=== PATIENT | female | born 1950 | race Caucasian/White ===

== ENCOUNTER 2017-09-15 23:05 | Inpatient (IN) | payer MEDICARE ==
[~2017-09-15] VITALS: Ht 154.9 cm; Wt 109.4 kg
[2017-09-16] MEDS ORDERED: IPRATROPIUM BROM 0.5 MG/2.5ML INH SOL NEB ONE ×3 (00:45→04:15)
[2017-09-16] MEDS ORDERED: ALBUTEROL SULF 2.5 MG/0.5ML(0.5%) NEB SOLN NEB ONE ×3 (00:45→04:15)
[2017-09-16] MEDS ORDERED: methylPREDNISolone SOD SUCC 125 MG/2 ML VL IV ONE (01:30)
[2017-09-16] MEDS ORDERED: diphenhdrAMINE HCL 50 MG/1 ML VL ONE (01:31)
[2017-09-16] MEDS ORDERED: EPINEPHrine HCL 1 MG/1 ML AMP ONE (01:31)
[2017-09-16] MEDS ORDERED: EPINEPHrine HCL 1 MG/1 ML AMP SC ONE ×2 (01:45→04:15)
[2017-09-16] MEDS ORDERED: SODIUM CHLORIDE 0.9% 1,000 ML IV ONE (01:45)
[2017-09-16] MEDS ORDERED: diphenhdrAMINE HCL 50 MG/1 ML VL IV ONE (01:45)
[2017-09-16] MEDS ORDERED: FAMOTIDINE (10MG/ML) 2ML VL IV ONE (04:15)
[2017-09-16 05:40] LABS: Basophils # (auto) 0.1 uL; Basophils % (auto) 0.5 % (0.0-2.0); Eosinophils # (auto) 0.1 uL; Eosinophils % (auto) 0.5 % (0.0-7.0); Hematocrit 40.5 % (36.0-46.0); Hemoglobin 13.5 g/dL (12.2-16.2); Lymphocytes % (auto) 15.8 % (10.0-50.0); Mean Corpuscular Hemoglobin 29.2 pg (28.0-32.0); Mean Corpuscular Hgb Conc. 33.3 g/dL (32.0-36.0); Mean Corpuscular Volume 87.7 fL (80.0-100.0); Monocytes # (auto) 0.6 uL; Monocytes % (auto) 4.6 % (0.0-12.0); Neutrophils # (auto) 9.9 uL; Neutrophils % (auto) 78.6 % (37.0-80.0); Nucleated Red Blood Cells % 0.1 %; Platelet Count (auto) 348 10^3/uL (140-450); Red Blood Cells 4.62 10^6/uL (4.0-5.20); Red Cell Distribution Width 14.7 % (11.8-14.3); White Blood Cell 12.6 10^3/uL (4.4-10.8)
[2017-09-16 05:55] LABS: Albumin 3.6 g/dL (3.4-5.0); Calcium 8.8 mg/dL (8.5-10.1); Potassium 3.5 mmol/L (3.5-5.1)
[2017-09-16 05:57] LABS: BUN/Creatinine Ratio 14.8; Magnesium 2.2 mg/dL (1.6-2.6)
[2017-09-16 06:03] LABS: Bilirubin, Total 0.2 mg/dL (0.2-1.0); Total Protein 8.3 g/dL (6.4-8.2)
[2017-09-16] MEDS ORDERED: ALBUTEROL SULF 2.5 MG/0.5ML(0.5%) NEB SOLN NEB PRN (09:45)
[2017-09-16] MEDS ORDERED: OSELTAMIVIR 75 MG CAP PO ONE (09:45)
[2017-09-16] MEDS ORDERED: MORPHINE SULFATE 4 MG/ML SYR/VIAL IV PRN (09:45)
[2017-09-16] MEDS ORDERED: DEXTROSE (50%) 50ML SYRG IV PRN (09:45)
[2017-09-16] MEDS ORDERED: PROMETHAZINE HCL 25 MG/ML 1ML IV PRN (09:45)
[2017-09-16] MEDS ORDERED: SODIUM CHLORIDE 0.9% 500 ML IV ONE (09:45)
[2017-09-16] MEDS ORDERED: MORPHINE SULF INJ 2 MG/ML SYRINGE 1ML IV PRN (09:45)
[2017-09-16] MEDS ORDERED: LACTULOSE 20Gm/30ML SOLN PO PRN (09:45)
[2017-09-16] MEDS ORDERED: NITROGLYCERIN 0.4 MG SL TAB SL PRN (09:45)
[2017-09-16] MEDS: ENOXAPARIN SOD 40 MG/0.4 ML SYRINGE SC SCH (10:17)
[2017-09-16] MEDS: ACETAMINOPHEN 500 MG TAB PO PRN (10:20)
[2017-09-16] MEDS: FAMOTIDINE (10MG/ML) 2ML VL IV SCH ×2 (10:42→22:09)
[2017-09-16] MEDS: DOXYCYCLINE HYC 100MG/250ML 250 ML IV SCH ×2 (10:45→22:08)
[2017-09-16] MEDS ORDERED: METO1TAB9 PO (11:10)
[2017-09-16] MEDS: SODIUM CHLORIDE 0.9% 1,000 ML IV SCH (11:10)
[2017-09-16] MEDS ORDERED: DILT-40 (11:10)
[2017-09-16] MEDS ORDERED: TRAZ150T79 (11:13)
[2017-09-16] MEDS ORDERED: OME40GT (11:13)
[2017-09-16] MEDS ORDERED: DIPH2.5T16 (11:13)
[2017-09-16] MEDS ORDERED: LEVO112T4 (11:13)
[2017-09-16] MEDS ORDERED: DULO1CAP3 (11:13)
[2017-09-16] MEDS ORDERED: METO-169 PO (11:15)
[2017-09-16] MEDS ORDERED: ALBUTEROL SULF 2.5 MG/0.5ML(0.5%) NEB SOLN NEB SCH (12:00)
[2017-09-16] MEDS ORDERED: methylPREDNISolone SOD SUCC 40 MG/ML VL IV SCH (12:00)
[2017-09-16] MEDS: ACCU-CHEK COMFORT CURVE STRIP VI SCH ×3 (12:24→22:13)
[2017-09-16] MEDS: InsuLIN REG 1unit/0.01ml Soln (100units/ml) SC SCH ×3 (12:28→22:13)
[2017-09-16] MEDS: IPRATROPIUM BROM 0.5 MG/2.5ML INH SOL NEB SCH ×2 (12:30→19:50)
[2017-09-16 17:00] VITALS: BP 149/102
[2017-09-16 17:04] VITALS: BP 149/104
[2017-09-16] MEDS: ASPirin 81 mg TAB PO SCH (18:08)
[2017-09-16 20:00] VITALS: BP 159/102
[2017-09-16 21:33] VITALS: BP 159/79
[2017-09-16 21:57] VITALS: BP 159/79
[2017-09-16] MEDS: OSELTAMIVIR 75 MG CAP PO SCH (22:00)
[2017-09-16] MEDS: ATORVASTATIN 20 MG TAB PO SCH (22:09)
[2017-09-16] MEDS: LORazepam 0.5 MG TAB PO PRN (22:09)
[2017-09-17] MEDS: SODIUM CHLORIDE 0.9% 1,000 ML IV SCH ×2 (00:05→13:25)
[2017-09-17] MEDS: TEMAZEPAM 15 MG CAP PO PRN (00:39)
[2017-09-17] MEDS: IPRATROPIUM BROM 0.5 MG/2.5ML INH SOL NEB SCH ×4 (01:18→20:01)
[2017-09-17 05:22] VITALS: BP 147/97
[2017-09-17] MEDS: ACCU-CHEK COMFORT CURVE STRIP VI SCH ×4 (06:34→22:00)
[2017-09-17] MEDS: InsuLIN REG 1unit/0.01ml Soln (100units/ml) SC SCH ×4 (06:35→22:00)
[2017-09-17 07:05] LABS: Basophils # (auto) 0 uL; Eosinophils # (auto) 0 uL; Hemoglobin 11.8 g/dL (12.2-16.2); Lymphocytes # (auto) 1.7 uL; Lymphocytes % (auto) 10.7 % (10.0-50.0); Mean Corpuscular Hemoglobin 28.8 pg (28.0-32.0); Mean Corpuscular Hgb Conc. 32.8 g/dL (32.0-36.0); Mean Corpuscular Volume 87.9 fL (80.0-100.0); Monocytes # (auto) 1.2 uL; Monocytes % (auto) 7.3 % (0.0-12.0); Neutrophils # (auto) 13.2 uL; Platelet Count (auto) 279 10^3/uL (140-450); Red Blood Cells 4.09 10^6/uL (4.0-5.20); Red Cell Distribution Width 14.1 % (11.8-14.3); White Blood Cell 16.1 10^3/uL (4.4-10.8)
[2017-09-17 07:34] LABS: BUN/Creatinine Ratio 25.6; Bilirubin, Total 0.2 mg/dL (0.2-1.0); Calcium 8.6 mg/dL (8.5-10.1); Potassium 3.8 mmol/L (3.5-5.1)
[2017-09-17 09:00] VITALS: BP 152/95
[2017-09-17] MEDS: OSELTAMIVIR 75 MG CAP PO SCH ×2 (10:00→22:00)
[2017-09-17] MEDS: DOXYCYCLINE HYC 100MG/250ML 250 ML IV SCH ×2 (10:12→23:43)
[2017-09-17] MEDS: FAMOTIDINE (10MG/ML) 2ML VL IV SCH ×2 (10:13→23:43)
[2017-09-17] MEDS: ENOXAPARIN SOD 40 MG/0.4 ML SYRINGE SC SCH (10:13)
[2017-09-17] MEDS: ASPirin 81 mg TAB PO SCH (10:13)
[2017-09-17 13:00] VITALS: BP 144/95
[2017-09-17 17:00] VITALS: BP 148/91
[2017-09-17] MEDS: HYDROcodone-ACET 5/325MG TAB PO PRN (17:01)
[2017-09-17 20:00] VITALS: BP 152/55
[2017-09-17] MEDS: LORazepam 0.5 MG TAB PO PRN (20:11)
[2017-09-17] MEDS ORDERED: methylPREDNISolone SOD SUCC 125 MG/2 ML VL IV ONE (21:00)
[2017-09-17] MEDS ORDERED: LORazepam 2MG/ML-1ML VIAL IV PRN (21:00)
[2017-09-17] MEDS ORDERED: ALBUTEROL SULF 2.5 MG/0.5ML(0.5%) NEB SOLN NEB ONE (21:00)
[2017-09-17] MEDS ORDERED: diphenhdrAMINE HCL 50 MG/1 ML VL ONE (21:07)
[2017-09-17] MEDS ORDERED: EPINEPHrine HCL 0.5 ML NEB NEB ONE (21:15)
[2017-09-17] MEDS ORDERED: diphenhdrAMINE HCL 50 MG/1 ML VL IV ONE (21:30)
[2017-09-17 22:00] VITALS: BP_SYST 152; BP_DIAS 55; BP_DIAS 95
[2017-09-17] MEDS: ATORVASTATIN 20 MG TAB PO SCH (23:43)
[2017-09-18] MEDS: ALBUTEROL SULF 2.5 MG/0.5ML(0.5%) NEB SOLN NEB SCH ×3 (00:35→11:52)
[2017-09-18] MEDS: IPRATROPIUM BROM 0.5 MG/2.5ML INH SOL NEB SCH ×4 (00:35→20:19)
[2017-09-18] MEDS: SODIUM CHLORIDE 0.9% 1,000 ML IV SCH ×2 (02:55→16:05)
[2017-09-18 05:00] VITALS: BP 155/92
[2017-09-18] MEDS: ACCU-CHEK COMFORT CURVE STRIP VI SCH ×4 (06:31→22:00)
[2017-09-18] MEDS: InsuLIN REG 1unit/0.01ml Soln (100units/ml) SC SCH ×4 (07:01→22:00)
[2017-09-18 09:00] VITALS: BP 150/99
[2017-09-18] MEDS: OSELTAMIVIR 75 MG CAP PO SCH ×2 (10:00→22:00)
[2017-09-18] MEDS: FAMOTIDINE (10MG/ML) 2ML VL IV SCH (10:08)
[2017-09-18] MEDS: DOXYCYCLINE HYC 100MG/250ML 250 ML IV SCH (10:08)
[2017-09-18] MEDS: ASPirin 81 mg TAB PO SCH (10:09)
[2017-09-18] MEDS: ENOXAPARIN SOD 40 MG/0.4 ML SYRINGE SC SCH (10:09)
[2017-09-18 13:00] VITALS: BP 167/55
[2017-09-18] MEDS: LORazepam 0.5 MG TAB PO PRN (13:09)
[2017-09-18] MEDS ORDERED: METOPROLOL TARTRATE 1MG/1ML-5ML VIAL IV PRN (14:45)
[2017-09-18] MEDS: methylPREDNISolone SOD SUCC 40 MG/ML VL IV SCH ×2 (15:27→22:41)
[2017-09-18] MEDS: DILTIAZEM HCL 180MG ER CAP PO SCH (15:30)
[2017-09-18 17:00] VITALS: BP 157/93
[2017-09-18] MEDS ORDERED: XOPENEX IN SCH (18:00)
[2017-09-18 22:00] VITALS: BP 146/85
[2017-09-18] MEDS: ATORVASTATIN 20 MG TAB PO SCH (22:42)
[2017-09-18] MEDS: FAMOTIDINE 20 MG TAB PO SCH (22:42)
[2017-09-18] MEDS: DOXYCYCLINE 100 MG TAB/CAP PO SCH (22:42)
[2017-09-19] MEDS: IPRATROPIUM BROM 0.5 MG/2.5ML INH SOL NEB SCH ×4 (00:52→20:33)
[2017-09-19 05:00] VITALS: BP 156/104
[2017-09-19] MEDS: SODIUM CHLORIDE 0.9% 1,000 ML IV SCH ×3 (05:25→22:42)
[2017-09-19] MEDS: ACCU-CHEK COMFORT CURVE STRIP VI SCH ×4 (06:41→22:41)
[2017-09-19] MEDS: InsuLIN REG 1unit/0.01ml Soln (100units/ml) SC SCH ×4 (06:51→22:41)
[2017-09-19] MEDS: LEVALBUTEROL HCL 1.25 MG/3 ML NEB IN SCH ×4 (07:24→22:00)
[2017-09-19 09:49] VITALS: BP 165/93
[2017-09-19] MEDS: OSELTAMIVIR 75 MG CAP PO SCH ×2 (10:00→22:41)
[2017-09-19] MEDS: FAMOTIDINE 20 MG TAB PO SCH ×2 (10:27→22:40)
[2017-09-19] MEDS: methylPREDNISolone SOD SUCC 40 MG/ML VL IV SCH (10:27)
[2017-09-19] MEDS: ASPirin 81 mg TAB PO SCH (10:27)
[2017-09-19] MEDS: DILTIAZEM HCL 180MG ER CAP PO SCH (10:28)
[2017-09-19] MEDS: ENOXAPARIN SOD 40 MG/0.4 ML SYRINGE SC SCH (10:28)
[2017-09-19] MEDS: DOXYCYCLINE 100 MG TAB/CAP PO SCH ×2 (10:28→22:41)
[2017-09-19] MEDS ORDERED: DULoxetine HCL 30 MG CAP PO ONE (10:45)
[2017-09-19 12:02] VITALS: BP 158/95
[2017-09-19] MEDS: clonazePAM 0.5 MG TAB PO SCH (12:36)
[2017-09-19] MEDS: LABETALOL HCL 200 MG TAB PO SCH ×2 (13:57→22:40)
[2017-09-19 14:58] VITALS: BP 138/80
[2017-09-19 16:39] VITALS: BP 135/79
[2017-09-19] MEDS: ATORVASTATIN 20 MG TAB PO SCH (22:39)
[2017-09-19 22:49] VITALS: BP 136/72
[2017-09-19] MEDS: TEMAZEPAM 15 MG CAP PO PRN (23:55)
[2017-09-20] MEDS: IPRATROPIUM BROM 0.5 MG/2.5ML INH SOL NEB SCH ×4 (01:21→19:16)
[2017-09-20 01:53] VITALS: BP 136/72
[2017-09-20 05:46] VITALS: BP 133/76
[2017-09-20] MEDS: LEVALBUTEROL HCL 1.25 MG/3 ML NEB IN SCH ×3 (06:01→18:00)
[2017-09-20] MEDS: ACCU-CHEK COMFORT CURVE STRIP VI SCH ×4 (06:50→21:49)
[2017-09-20] MEDS: LABETALOL HCL 200 MG TAB PO SCH ×3 (06:53→21:50)
[2017-09-20] MEDS: InsuLIN REG 1unit/0.01ml Soln (100units/ml) SC SCH ×4 (06:54→22:01)
[2017-09-20 08:00] VITALS: BP 133/63
[2017-09-20 09:01] VITALS: BP 133/63
[2017-09-20] MEDS: methylPREDNISolone SOD SUCC 40 MG/ML VL IV SCH (10:39)
[2017-09-20] MEDS: ASPirin 81 mg TAB PO SCH (10:39)
[2017-09-20] MEDS: DULoxetine HCL 30 MG CAP PO SCH (10:40)
[2017-09-20] MEDS: DILTIAZEM HCL 180MG ER CAP PO SCH (10:40)
[2017-09-20] MEDS: clonazePAM 0.5 MG TAB PO SCH (10:40)
[2017-09-20] MEDS: DOXYCYCLINE 100 MG TAB/CAP PO SCH ×2 (10:41→21:48)
[2017-09-20] MEDS: FAMOTIDINE 20 MG TAB PO SCH ×2 (10:49→21:48)
[2017-09-20] MEDS: OSELTAMIVIR 75 MG CAP PO SCH ×2 (10:49→21:48)
[2017-09-20] MEDS: ENOXAPARIN SOD 40 MG/0.4 ML SYRINGE SC SCH (10:50)
[2017-09-20] MEDS: ACETAMINOPHEN 500 MG TAB PO PRN (10:50)
[2017-09-20 13:28] VITALS: BP 144/72
[2017-09-20] MEDS: guaiFENesin-DM 100/10mg/5ml SYR PO PRN ×2 (15:13→21:48)
[2017-09-20 17:18] VITALS: BP 139/70
[2017-09-20] MEDS: ACETYLCYSTEINE 10 %(100MG/ML) SOL 4ML NEB SCH (19:17)
[2017-09-20] MEDS: ATORVASTATIN 20 MG TAB PO SCH (21:48)
[2017-09-20] MEDS: SODIUM CHLORIDE 0.9% 1,000 ML IV SCH (21:51)
[2017-09-21] MEDS: IPRATROPIUM BROM 0.5 MG/2.5ML INH SOL NEB SCH ×3 (00:09→19:44)
[2017-09-21] MEDS: ACETYLCYSTEINE 10 %(100MG/ML) SOL 4ML NEB SCH ×3 (00:10→19:44)
[2017-09-21 00:37] VITALS: BP 120/85
[2017-09-21] MEDS: TEMAZEPAM 15 MG CAP PO PRN ×2 (01:40→22:44)
[2017-09-21 05:46] VITALS: BP 130/63
[2017-09-21 05:53] LABS: Basophils # (auto) 0 uL; Basophils % (auto) 0.1 % (0.0-2.0); Eosinophils # (auto) 0 uL; Hematocrit 35.7 % (36.0-46.0); Hemoglobin 11.6 g/dL (12.2-16.2); Lymphocytes # (auto) 2.1 uL; Lymphocytes % (auto) 15.4 % (10.0-50.0); Mean Corpuscular Hemoglobin 28.7 pg (28.0-32.0); Mean Corpuscular Hgb Conc. 32.6 g/dL (32.0-36.0); Monocytes % (auto) 7.4 % (0.0-12.0); Neutrophils # (auto) 10.7 uL; Neutrophils % (auto) 77.1 % (37.0-80.0); Platelet Count (auto) 333 10^3/uL (140-450); Red Blood Cells 4.06 10^6/uL (4.0-5.20); Red Cell Distribution Width 14.3 % (11.8-14.3); White Blood Cell 13.9 10^3/uL (4.4-10.8)
[2017-09-21] MEDS: LABETALOL HCL 200 MG TAB PO SCH ×3 (06:22→22:29)
[2017-09-21] MEDS: ACCU-CHEK COMFORT CURVE STRIP VI SCH ×4 (06:23→22:00)
[2017-09-21 06:26] LABS: Potassium 3.7 mmol/L (3.5-5.1)
[2017-09-21 06:30] LABS: Albumin 2.9 g/dL (3.4-5.0); BUN/Creatinine Ratio 28.1; Calcium 8.3 mg/dL (8.5-10.1)
[2017-09-21 06:32] LABS: Bilirubin, Total 0.2 mg/dL (0.2-1.0); Total Protein 6.3 g/dL (6.4-8.2)
[2017-09-21] MEDS: InsuLIN REG 1unit/0.01ml Soln (100units/ml) SC SCH ×4 (06:32→22:45)
[2017-09-21] MEDS: guaiFENesin-DM 100/10mg/5ml SYR PO PRN ×3 (06:39→22:44)
[2017-09-21 08:37] VITALS: BP 153/90
[2017-09-21] MEDS: DULoxetine HCL 30 MG CAP PO SCH (10:29)
[2017-09-21] MEDS: FAMOTIDINE 20 MG TAB PO SCH ×2 (10:29→22:30)
[2017-09-21] MEDS: DOXYCYCLINE 100 MG TAB/CAP PO SCH ×2 (10:29→22:28)
[2017-09-21] MEDS: methylPREDNISolone SOD SUCC 40 MG/ML VL IV SCH (10:29)
[2017-09-21] MEDS: ENOXAPARIN SOD 40 MG/0.4 ML SYRINGE SC SCH (10:29)
[2017-09-21] MEDS: clonazePAM 0.5 MG TAB PO SCH (10:29)
[2017-09-21] MEDS: DILTIAZEM HCL 180MG ER CAP PO SCH (10:30)
[2017-09-21] MEDS: ASPirin 81 mg TAB PO SCH (10:31)
[2017-09-21] MEDS: SODIUM CHLORIDE 0.9% 1,000 ML IV SCH (11:58)
[2017-09-21 12:33] VITALS: BP 151/90
[2017-09-21] MEDS: ACETAMINOPHEN 500 MG TAB PO PRN (14:29)
[2017-09-21 16:44] VITALS: BP 119/61
[2017-09-21] MEDS: LEVALBUTEROL HCL 1.25 MG/3 ML NEB IN SCH ×2 (18:00→22:00)
[2017-09-21 22:14] VITALS: BP 128/61
[2017-09-21] MEDS: ATORVASTATIN 20 MG TAB PO SCH (22:30)
[2017-09-22] MEDS: SODIUM CHLORIDE 0.9% 1,000 ML IV SCH ×2 (00:48→13:43)
[2017-09-22] MEDS: IPRATROPIUM BROM 0.5 MG/2.5ML INH SOL NEB SCH ×4 (00:59→19:43)
[2017-09-22] MEDS: ACETYLCYSTEINE 10 %(100MG/ML) SOL 4ML NEB SCH ×4 (00:59→19:43)
[2017-09-22 05:19] VITALS: BP 155/80
[2017-09-22] MEDS: LABETALOL HCL 200 MG TAB PO SCH ×3 (05:27→22:10)
[2017-09-22] MEDS: LEVALBUTEROL HCL 1.25 MG/3 ML NEB IN SCH ×7 (06:00→22:00)
[2017-09-22] MEDS: ACCU-CHEK COMFORT CURVE STRIP VI SCH ×4 (06:34→22:10)
[2017-09-22] MEDS: InsuLIN REG 1unit/0.01ml Soln (100units/ml) SC SCH ×4 (06:34→22:21)
[2017-09-22 08:00] VITALS: BP 146/64
[2017-09-22 09:00] VITALS: BP 145/75
[2017-09-22] MEDS: ENOXAPARIN SOD 40 MG/0.4 ML SYRINGE SC SCH (09:38)
[2017-09-22] MEDS: clonazePAM 0.5 MG TAB PO SCH (09:38)
[2017-09-22] MEDS: methylPREDNISolone SOD SUCC 125 MG/2 ML VL IV SCH (09:38)
[2017-09-22] MEDS: FAMOTIDINE 20 MG TAB PO SCH ×2 (09:38→22:10)
[2017-09-22] MEDS: DOXYCYCLINE 100 MG TAB/CAP PO SCH ×2 (09:39→22:10)
[2017-09-22] MEDS: DULoxetine HCL 30 MG CAP PO SCH (09:40)
[2017-09-22] MEDS: ASPirin 81 mg TAB PO SCH (09:41)
[2017-09-22] MEDS: DILTIAZEM HCL 180MG ER CAP PO SCH (09:41)
[2017-09-22 11:05] LABS: INR 0.97 (0.9-1.15); Prothrombin Time 10.6 sec (9.37-12.3)
[2017-09-22] MEDS: ACETAMINOPHEN 500 MG TAB PO PRN (11:10)
[2017-09-22] MEDS: guaiFENesin-DM 100/10mg/5ml SYR PO PRN ×3 (11:11→22:22)
[2017-09-22 13:00] VITALS: BP 150/81
[2017-09-22 17:00] VITALS: BP 130/77
[2017-09-22 22:00] VITALS: BP 152/69
[2017-09-22] MEDS: ATORVASTATIN 20 MG TAB PO SCH (22:09)
[2017-09-22] MEDS: TEMAZEPAM 15 MG CAP PO PRN (22:21)
[2017-09-23] MEDS: ACETYLCYSTEINE 10 %(100MG/ML) SOL 4ML NEB SCH ×4 (00:15→19:49)
[2017-09-23] MEDS: IPRATROPIUM BROM 0.5 MG/2.5ML INH SOL NEB SCH ×4 (00:15→19:48)
[2017-09-23] MEDS: LEVALBUTEROL HCL 1.25 MG/3 ML NEB IN SCH ×4 (01:31→19:49)
[2017-09-23 01:50] VITALS: BP 152/69
[2017-09-23] MEDS: SODIUM CHLORIDE 0.9% 1,000 ML IV SCH ×2 (02:32→16:05)
[2017-09-23 04:37] VITALS: BP 146/73
[2017-09-23] MEDS: LABETALOL HCL 200 MG TAB PO SCH ×3 (06:18→22:39)
[2017-09-23] MEDS: InsuLIN REG 1unit/0.01ml Soln (100units/ml) SC SCH ×4 (06:24→22:40)
[2017-09-23] MEDS: ACCU-CHEK COMFORT CURVE STRIP VI SCH ×4 (06:24→22:39)
[2017-09-23] MEDS: HYDROcodone-ACET 5/325MG TAB PO PRN (06:54)
[2017-09-23 09:32] VITALS: BP 136/79
[2017-09-23] MEDS: methylPREDNISolone SOD SUCC 125 MG/2 ML VL IV SCH (10:10)
[2017-09-23] MEDS: ASPirin 81 mg TAB PO SCH (10:10)
[2017-09-23] MEDS: DILTIAZEM HCL 180MG ER CAP PO SCH (10:11)
[2017-09-23] MEDS: DULoxetine HCL 30 MG CAP PO SCH (10:12)
[2017-09-23] MEDS: FAMOTIDINE 20 MG TAB PO SCH ×2 (10:12→22:39)
[2017-09-23] MEDS: clonazePAM 0.5 MG TAB PO SCH (10:12)
[2017-09-23] MEDS: DOXYCYCLINE 100 MG TAB/CAP PO SCH ×2 (10:13→22:39)
[2017-09-23] MEDS: ENOXAPARIN SOD 40 MG/0.4 ML SYRINGE SC SCH (10:13)
[2017-09-23] MEDS: guaiFENesin-DM 100/10mg/5ml SYR PO PRN ×2 (10:14→22:41)
[2017-09-23] MEDS ORDERED: IPRATROPIUM BROM 0.5 MG/2.5ML INH SOL ONE (11:20)
[2017-09-23 13:00] VITALS: BP 134/71
[2017-09-23 17:00] VITALS: BP 156/77
[2017-09-23 22:00] VITALS: BP 150/83
[2017-09-23] MEDS: ATORVASTATIN 20 MG TAB PO SCH (22:38)
[2017-09-23] MEDS: TEMAZEPAM 15 MG CAP PO PRN (22:40)
[2017-09-24] MEDS: IPRATROPIUM BROM 0.5 MG/2.5ML INH SOL NEB SCH ×4 (01:31→20:44)
[2017-09-24] MEDS: ACETYLCYSTEINE 10 %(100MG/ML) SOL 4ML NEB SCH ×4 (01:31→20:44)
[2017-09-24] MEDS: SODIUM CHLORIDE 0.9% 1,000 ML IV SCH ×2 (04:32→17:24)
[2017-09-24] MEDS: guaiFENesin-DM 100/10mg/5ml SYR PO PRN ×2 (04:58→23:04)
[2017-09-24 05:47] VITALS: BP 138/76
[2017-09-24] MEDS: LABETALOL HCL 200 MG TAB PO SCH ×3 (06:15→23:03)
[2017-09-24] MEDS: ACCU-CHEK COMFORT CURVE STRIP VI SCH ×4 (06:21→23:03)
[2017-09-24] MEDS: InsuLIN REG 1unit/0.01ml Soln (100units/ml) SC SCH ×4 (06:21→23:05)
[2017-09-24] MEDS: LEVALBUTEROL HCL 1.25 MG/3 ML NEB IN SCH ×2 (07:11→12:21)
[2017-09-24 08:00] VITALS: BP 144/84
[2017-09-24] MEDS: methylPREDNISolone SOD SUCC 125 MG/2 ML VL IV SCH (10:30)
[2017-09-24] MEDS: DULoxetine HCL 30 MG CAP PO SCH (10:31)
[2017-09-24] MEDS: DOXYCYCLINE 100 MG TAB/CAP PO SCH ×2 (10:31→23:03)
[2017-09-24] MEDS: FAMOTIDINE 20 MG TAB PO SCH ×2 (10:31→23:03)
[2017-09-24] MEDS: clonazePAM 0.5 MG TAB PO SCH (10:31)
[2017-09-24] MEDS: ASPirin 81 mg TAB PO SCH (10:31)
[2017-09-24] MEDS: ENOXAPARIN SOD 40 MG/0.4 ML SYRINGE SC SCH (10:31)
[2017-09-24] MEDS: DILTIAZEM HCL 180MG ER CAP PO SCH (10:32)
[2017-09-24] MEDS: ACETAMINOPHEN 500 MG TAB PO PRN (11:24)
[2017-09-24 12:00] VITALS: BP 134/75
[2017-09-24] MEDS: HYDROcodone-ACET 5/325MG TAB PO PRN (14:25)
[2017-09-24 17:06] VITALS: BP 121/74
[2017-09-24 22:00] VITALS: BP 146/78
[2017-09-24] MEDS: ATORVASTATIN 20 MG TAB PO SCH (23:02)
[2017-09-24] MEDS: OSELTAMIVIR 75 MG CAP PO SCH (23:03)
[2017-09-24] MEDS: TEMAZEPAM 15 MG CAP PO PRN (23:04)
[2017-09-25] MEDS: IPRATROPIUM BROM 0.5 MG/2.5ML INH SOL NEB SCH ×4 (01:51→19:51)
[2017-09-25] MEDS: ACETYLCYSTEINE 10 %(100MG/ML) SOL 4ML NEB SCH ×4 (01:52→19:51)
[2017-09-25 05:00] VITALS: BP 144/85
[2017-09-25] MEDS: ACCU-CHEK COMFORT CURVE STRIP VI SCH ×4 (06:19→22:21)
[2017-09-25] MEDS: InsuLIN REG 1unit/0.01ml Soln (100units/ml) SC SCH ×4 (06:19→22:21)
[2017-09-25] MEDS: LABETALOL HCL 200 MG TAB PO SCH ×3 (06:19→22:04)
[2017-09-25] MEDS ORDERED: IOHEXOL 350 MG/ML 100ML IJ ONE (06:48)
[2017-09-25] MEDS ORDERED: LIDOCAINE 2%HCL (LOCAL ANESTH.) INJ 20ML MDV ONE (06:49)
[2017-09-25] MEDS ORDERED: HEPARIN IN NS 1000Units/500mL 0 ML ONE (06:49)
[2017-09-25] MEDS: LEVALBUTEROL HCL 1.25 MG/3 ML NEB IN SCH ×3 (07:30→19:51)
[2017-09-25] MEDS: SODIUM CHLORIDE 0.9% 1,000 ML IV SCH ×2 (08:05→20:41)
[2017-09-25 09:00] VITALS: BP 148/81
[2017-09-25] MEDS: DULoxetine HCL 30 MG CAP PO SCH (11:19)
[2017-09-25] MEDS: methylPREDNISolone SOD SUCC 125 MG/2 ML VL IV SCH (11:19)
[2017-09-25] MEDS: ENOXAPARIN SOD 40 MG/0.4 ML SYRINGE SC SCH (11:19)
[2017-09-25] MEDS: clonazePAM 0.5 MG TAB PO SCH (11:19)
[2017-09-25] MEDS: DOXYCYCLINE 100 MG TAB/CAP PO SCH ×2 (11:19→22:04)
[2017-09-25] MEDS: ASPirin 81 mg TAB PO SCH (11:20)
[2017-09-25] MEDS: OSELTAMIVIR 75 MG CAP PO SCH ×2 (11:20→22:00)
[2017-09-25] MEDS: HYDROcodone-ACET 5/325MG TAB PO PRN ×2 (11:24→17:31)
[2017-09-25] MEDS: FAMOTIDINE 20 MG TAB PO SCH ×2 (11:24→22:04)
[2017-09-25] MEDS: DILTIAZEM HCL 180MG ER CAP PO SCH (11:26)
[2017-09-25 13:00] VITALS: BP 160/77
[2017-09-25 17:00] VITALS: BP 123/65
[2017-09-25 22:00] VITALS: BP 126/64
[2017-09-25] MEDS: ATORVASTATIN 20 MG TAB PO SCH (22:03)
[2017-09-26] VITALS (7 sets, daily range): BP systolic 103–154; BP diastolic 65–82
[2017-09-26] MEDS: IPRATROPIUM BROM 0.5 MG/2.5ML INH SOL NEB SCH ×4 (01:01→19:14)
[2017-09-26] MEDS: ACETYLCYSTEINE 10 %(100MG/ML) SOL 4ML NEB SCH ×4 (01:01→19:15)
[2017-09-26] MEDS: ACETAMINOPHEN 500 MG TAB PO PRN ×2 (01:50→16:34)
[2017-09-26] MEDS: LABETALOL HCL 200 MG TAB PO SCH ×3 (06:15→22:00)
[2017-09-26] MEDS: ACCU-CHEK COMFORT CURVE STRIP VI SCH ×4 (06:16→22:15)
[2017-09-26] MEDS: InsuLIN REG 1unit/0.01ml Soln (100units/ml) SC SCH ×4 (06:16→22:00)
[2017-09-26] MEDS: OSELTAMIVIR 75 MG CAP PO SCH ×2 (07:40→22:14)
[2017-09-26] MEDS: ENOXAPARIN SOD 40 MG/0.4 ML SYRINGE SC SCH (10:38)
[2017-09-26] MEDS: clonazePAM 0.5 MG TAB PO SCH (10:39)
[2017-09-26] MEDS: DILTIAZEM HCL 180MG ER CAP PO SCH (10:39)
[2017-09-26] MEDS: DOXYCYCLINE 100 MG TAB/CAP PO SCH ×2 (10:39→22:14)
[2017-09-26] MEDS: FAMOTIDINE 20 MG TAB PO SCH ×2 (10:39→22:14)
[2017-09-26] MEDS: ASPirin 81 mg TAB PO SCH (10:40)
[2017-09-26] MEDS: methylPREDNISolone SOD SUCC 125 MG/2 ML VL IV SCH (10:40)
[2017-09-26] MEDS: DULoxetine HCL 30 MG CAP PO SCH (10:40)
[2017-09-26] MEDS: SODIUM CHLORIDE 0.9% 1,000 ML IV SCH (10:41)
[2017-09-26] MEDS: guaiFENesin-DM 100/10mg/5ml SYR PO PRN ×2 (10:49→22:16)
[2017-09-26] MEDS: LEVALBUTEROL HCL 1.25 MG/3 ML NEB IN SCH ×3 (10:51→19:15)
[2017-09-26] MEDS ORDERED: LIDOCAINE 2%HCL (LOCAL ANESTH.) INJ 20ML MDV ONE (11:37)
[2017-09-26] MEDS ORDERED: IOHEXOL 350 MG/ML 100ML IJ ONE (11:37)
[2017-09-26] MEDS ORDERED: fentaNYL CITRATE 100 MCG/2 ML VL ONE (12:05)
[2017-09-26] MEDS ORDERED: ANGIOMAX 250 MG VIAL IV ONE (12:05)
[2017-09-26] MEDS ORDERED: MIDAZOLAM HCL 1MG/1ML-2 ML VIAL ONE (12:06)
[2017-09-26] MEDS ORDERED: SODIUM CHL 0.9% 0 ML ONE (12:06)
[2017-09-26] MEDS: ATORVASTATIN 20 MG TAB PO SCH (22:12)
[2017-09-26] MEDS: TEMAZEPAM 15 MG CAP PO PRN (22:16)
[2017-09-27] MEDS: SODIUM CHLORIDE 0.9% 1,000 ML IV SCH ×2 (00:05→14:05)
[2017-09-27] MEDS: IPRATROPIUM BROM 0.5 MG/2.5ML INH SOL NEB SCH ×4 (00:20→19:28)
[2017-09-27] MEDS: ACETYLCYSTEINE 10 %(100MG/ML) SOL 4ML NEB SCH ×3 (00:20→19:28)
[2017-09-27 05:00] VITALS: BP 148/76
[2017-09-27] MEDS: LABETALOL HCL 200 MG TAB PO SCH ×3 (06:27→23:43)
[2017-09-27] MEDS: ACCU-CHEK COMFORT CURVE STRIP VI SCH ×4 (07:00→22:00)
[2017-09-27] MEDS: InsuLIN REG 1unit/0.01ml Soln (100units/ml) SC SCH ×4 (07:00→22:00)
[2017-09-27] MEDS: LEVALBUTEROL HCL 1.25 MG/3 ML NEB IN SCH ×3 (07:55→19:28)
[2017-09-27 09:00] VITALS: BP 131/94
[2017-09-27] MEDS: DULoxetine HCL 30 MG CAP PO SCH (09:47)
[2017-09-27] MEDS: DOXYCYCLINE 100 MG TAB/CAP PO SCH ×2 (09:47→23:42)
[2017-09-27] MEDS: clonazePAM 0.5 MG TAB PO SCH (09:47)
[2017-09-27] MEDS: OSELTAMIVIR 75 MG CAP PO SCH ×2 (09:47→23:42)
[2017-09-27] MEDS: ASPirin 81 mg TAB PO SCH (09:48)
[2017-09-27] MEDS: FAMOTIDINE 20 MG TAB PO SCH ×2 (09:48→23:43)
[2017-09-27] MEDS: ENOXAPARIN SOD 40 MG/0.4 ML SYRINGE SC SCH (09:48)
[2017-09-27] MEDS: methylPREDNISolone SOD SUCC 125 MG/2 ML VL IV SCH (09:48)
[2017-09-27] MEDS: DILTIAZEM HCL 180MG ER CAP PO SCH (09:50)
[2017-09-27] MEDS: HYDROcodone-ACET 5/325MG TAB PO PRN (10:41)
[2017-09-27] MEDS: guaiFENesin-DM 100/10mg/5ml SYR PO PRN (10:43)
[2017-09-27 13:00] VITALS: BP 144/74
[2017-09-27 16:56] VITALS: BP 118/75
[2017-09-27 22:06] VITALS: BP 124/60
[2017-09-27] MEDS: TEMAZEPAM 15 MG CAP PO PRN (23:45)
[2017-09-28] MEDS: guaiFENesin-DM 100/10mg/5ml SYR PO PRN ×2 (00:10→16:26)
[2017-09-28] MEDS: ATORVASTATIN 20 MG TAB PO SCH ×2 (00:10→21:43)
[2017-09-28] MEDS: IPRATROPIUM BROM 0.5 MG/2.5ML INH SOL NEB SCH ×4 (00:48→19:12)
[2017-09-28] MEDS: LEVALBUTEROL HCL 1.25 MG/3 ML NEB IN SCH ×4 (00:48→09:54)
[2017-09-28] MEDS: ACETYLCYSTEINE 10 %(100MG/ML) SOL 4ML NEB SCH ×4 (00:48→19:12)
[2017-09-28 05:15] VITALS: BP 138/65
[2017-09-28] MEDS: SODIUM CHLORIDE 0.9% 1,000 ML IV SCH ×2 (06:05→16:28)
[2017-09-28] MEDS: LABETALOL HCL 200 MG TAB PO SCH ×3 (06:08→22:12)
[2017-09-28] MEDS: InsuLIN REG 1unit/0.01ml Soln (100units/ml) SC SCH ×4 (07:00→21:49)
[2017-09-28] MEDS: ACCU-CHEK COMFORT CURVE STRIP VI SCH ×4 (07:00→22:10)
[2017-09-28 09:12] VITALS: BP 133/70
[2017-09-28] MEDS: methylPREDNISolone SOD SUCC 125 MG/2 ML VL IV SCH (10:36)
[2017-09-28] MEDS: ENOXAPARIN SOD 40 MG/0.4 ML SYRINGE SC SCH (10:36)
[2017-09-28] MEDS: DOXYCYCLINE 100 MG TAB/CAP PO SCH ×2 (10:37→21:43)
[2017-09-28] MEDS: OSELTAMIVIR 75 MG CAP PO SCH ×2 (10:37→21:44)
[2017-09-28] MEDS: ASPirin 81 mg TAB PO SCH (10:37)
[2017-09-28] MEDS: clonazePAM 0.5 MG TAB PO SCH (10:37)
[2017-09-28] MEDS: DULoxetine HCL 30 MG CAP PO SCH (10:37)
[2017-09-28] MEDS: DILTIAZEM HCL 180MG ER CAP PO SCH (10:39)
[2017-09-28] MEDS: FAMOTIDINE 20 MG TAB PO SCH ×2 (10:39→21:46)
[2017-09-28 13:00] VITALS: BP 141/78
[2017-09-28] MEDS: HYDROcodone-ACET 5/325MG TAB PO PRN (13:57)
[2017-09-28 16:59] VITALS: BP 137/65
[2017-09-28 21:54] VITALS: BP_SYST 121; BP_SYST 185; BP_DIAS 67; BP_DIAS 83
[2017-09-28 21:55] VITALS: BP_SYST 121; BP_SYST 202; BP_DIAS 67; BP_DIAS 91
[2017-09-29] MEDS: ACETYLCYSTEINE 10 %(100MG/ML) SOL 4ML NEB SCH ×3 (00:21→13:07)
[2017-09-29] MEDS: IPRATROPIUM BROM 0.5 MG/2.5ML INH SOL NEB SCH ×3 (00:21→13:06)
[2017-09-29] MEDS: guaiFENesin-DM 100/10mg/5ml SYR PO PRN ×2 (02:44→11:56)
[2017-09-29 05:28] VITALS: BP 154/81
[2017-09-29] MEDS: SODIUM CHLORIDE 0.9% 1,000 ML IV SCH (06:30)
[2017-09-29] MEDS: LABETALOL HCL 200 MG TAB PO SCH ×2 (06:31→15:16)
[2017-09-29] MEDS: InsuLIN REG 1unit/0.01ml Soln (100units/ml) SC SCH ×3 (06:32→17:00)
[2017-09-29] MEDS: LEVALBUTEROL HCL 1.25 MG/3 ML NEB IN SCH ×2 (06:47→13:07)
[2017-09-29] MEDS: ACCU-CHEK COMFORT CURVE STRIP VI SCH ×3 (07:27→17:00)
[2017-09-29 08:59] VITALS: BP 140/81
[2017-09-29] MEDS: DULoxetine HCL 30 MG CAP PO SCH (09:53)
[2017-09-29] MEDS: DOXYCYCLINE 100 MG TAB/CAP PO SCH (09:53)
[2017-09-29] MEDS: OSELTAMIVIR 75 MG CAP PO SCH (09:54)
[2017-09-29] MEDS: methylPREDNISolone SOD SUCC 125 MG/2 ML VL IV SCH (09:56)
[2017-09-29] MEDS: ASPirin 81 mg TAB PO SCH (09:57)
[2017-09-29] MEDS: FAMOTIDINE 20 MG TAB PO SCH (09:58)
[2017-09-29] MEDS: clonazePAM 0.5 MG TAB PO SCH (09:58)
[2017-09-29] MEDS: ENOXAPARIN SOD 40 MG/0.4 ML SYRINGE SC SCH (09:58)
[2017-09-29] MEDS: DILTIAZEM HCL 180MG ER CAP PO SCH (09:58)
[2017-09-29 13:00] VITALS: BP 159/86
[2017-09-29 13:09] VITALS: BP 141/80
[2017-09-29 16:33] VITALS: BP 145/78
[2017-09-29] MEDS: ACETAMINOPHEN 500 MG TAB PO PRN (16:40)
== END 2017-09-29 18:26 | disposition home health service (06) | DRG 871 ==
LOC: EDBD 23:05 → ER 23:05 → TELE 23:06 → TELE-WESTW 09-16 16:19
PROVIDERS: ADMIT Internal Medicine; ATTEND Internal Medicine
PROC: 4A023N7 Measurement of Cardiac Sampling and Pressure, Left Heart, Percutaneous Approach (ICD-10-PCS; principal; 2017-09-26)
PROC: B2151ZZ Fluoroscopy of Left Heart using Low Osmolar Contrast (ICD-10-PCS; 2017-09-26)
PROC: B2111ZZ Fluoroscopy of Multiple Coronary Arteries using Low Osmolar Contrast (ICD-10-PCS; 2017-09-26)
PROC: B41F1ZZ Fluoroscopy of Right Lower Extremity Arteries using Low Osmolar Contrast (ICD-10-PCS; 2017-09-26)
DX: A41.9 Sepsis, unspecified organism (principal); I21.4 Non-ST elevation (NSTEMI) myocardial infarction; N17.0 Acute kidney failure with tubular necrosis; E66.01 Morbid (severe) obesity due to excess calories; J45.901 Unspecified asthma with (acute) exacerbation; Z68.42 Body mass index [BMI] 45.0-49.9, adult; I16.0 Hypertensive urgency; R74.8 Abnormal levels of other serum enzymes; E03.9 Hypothyroidism, unspecified; I10 Essential (primary) hypertension; Z96.651 Presence of right artificial knee joint; G56.03 Carpal tunnel syndrome, bilateral upper limbs; K59.00 Constipation, unspecified; J20.9 Acute bronchitis, unspecified; G47.00 Insomnia, unspecified; F41.9 Anxiety disorder, unspecified; E78.5 Hyperlipidemia, unspecified; J10.1 Influenza due to other identified influenza virus with other respiratory manifestations; Z90.49 Acquired absence of other specified parts of digestive tract; Z88.0 Allergy status to penicillin; Z81.8 Family history of other mental and behavioral disorders; Z90.710 Acquired absence of both cervix and uterus; Z88.2 Allergy status to sulfonamides; Z79.899 Other long term (current) drug therapy
CPT/HCPCS: 93458; 96361; 96372; 96374; 96375; 99285; G0278; 36415; 70490; 71010; 80053; 80061; 82550; 82962; 83036; 83735; 84484; 85025; 85379; 85610; 85652; 86141; 87081; 87400; 93005; 93306; 94640; 99152; J0171; J1815; J2250; J3490

== ENCOUNTER 2023-12-16 03:43 | Inpatient (IN) | payer MEDICARE, OTHER ==
[~2023-12-16] VITALS: Ht 152.4 cm; Wt 72.8 kg
[~2023-12-16 03:43] MED LIST: DILT-40; DIPH2.5T16; DULO1CAP6; LEVO112T4; OME40GT; TRAZ1TAB12
[2023-12-16 04:19] LABS: Hematocrit 42.5 % (36.0-46.0); Hemoglobin 13.7 g/dL (12.2-16.2); Mean Corpuscular Hemoglobin 28.6 pg (28.0-32.0); Mean Corpuscular Hgb Conc. 32.3 g/dL (32.0-36.0); Mean Corpuscular Volume 88.5 fL (80.0-100.0); Red Cell Distribution Width 14.6 % (11.8-14.3); White Blood Cell 26.5 10^3/uL (4.4-10.8)
[2023-12-16 04:26] LABS: Basophils % (manual) 0 (0.0-2.0); Blast Cells 0; Eosinophils % (manual) 0 (0-7); Myelocytes % 0; Promyelocytes % 0; Reactive Lymphocytes 0
[2023-12-16 04:52] LABS: Alanine Aminotransferase 23 U/L (7-40); Albumin 3.3 g/dL (3.2-4.8); Alkaline Phosphatase 115 U/L (46-116); Anion Gap 9 (5-15); Aspartate Aminotransferase 26 U/L (13-40); BUN/Creatinine Ratio 39.8 (10.0-20.0); Bilirubin, Total 0.4 mg/dL (0.2-1.0); Blood Urea Nitrogen 51 mg/dL (9-23); Calcium 8.4 mg/dL (8.7-10.4); Carbon Dioxide 21 mmol/L (20-30); Chloride 102 mmol/L (98-107); Glucose 160 mg/dL (74-106); Lipase 21 U/L (12-53); Potassium 4.2 mmol/L (3.5-5.1); Sodium 132 mmol/L (136-145); Total Protein 5.3 g/dL (5.7-8.2)
[2023-12-16 04:56] VITALS: PULSE 108; RESP 16; O2SAT 96
[2023-12-16 05:08] LABS: Band Neutrophils % (manual) 23; Lymphocytes % (manual) 6 (10.0-50.0); Metamyelocytes % 2; Monocytes % (manual) 3 (0-12); Platelet Estimate Adequate
[2023-12-16] MEDS: SODIUM CHLORIDE 0.9% 1,000 ML IV ONE (05:29)
[2023-12-16] MEDS: cefTRIAXone 1GM/50ML D5W 50 ML IV ONE (05:29)
[2023-12-16] MEDS: ONDANSETRON HCL 4 MG/2 ML VIAL IV ONE (06:53)
[2023-12-16] MEDS: metroNIDAZOLE 500MG/100ML 100 ML IV ONE (06:54)
[2023-12-16] MEDS: MORPHINE SULFATE 4 MG/ML SYR/VIAL IV ONE (06:54)
[2023-12-16 07:30] VITALS: RESP 16; O2SAT 96
[2023-12-16] MEDS: BISACODYL 10 MG RECT SUPP PR ONE (10:30)
[2023-12-16] MEDS: DICYCLOMINE HCL (10MG/ML) 2 ML AMPULE IM ONE (10:30)
[2023-12-16] MEDS: POLYETHYLENE GLYCOL 17 GM PWDR PO ONE (11:10)
[2023-12-16] MEDS: SODIUM CHLORIDE 0.9% 1,000 ML IV SCH (11:10)
[2023-12-16] MEDS: PANTOPRAZOLE 40 MG/10 ML VIAL INJ IV SCH (11:10)
[2023-12-16] MEDS: LACTULOSE 20Gm/30ML SOLN PO ONE (11:10)
[2023-12-16] MEDS: LEVOTHYROXINE SODIUM 112 MCG TAB PO SCH (11:11)
[2023-12-16 11:38] LABS: Urine Bacteria NONE SEEN /hpf (None Seen); Urine Blood Negative /uL (Negative); Urine Clarity Clear (Clear); Urine Color Yellow (Yellow); Urine Protein, UAD 1+ (Negative); Urine Specific Gravity 1.021 (1.001-1.035); Urine Urobilinogen Normal (Negative); Urine WBC 1 /hpf (0 - 5)
[2023-12-16 11:43] LABS: Sodium Urine < 10 mmol/L (40-220)
[2023-12-16 11:50] LABS: Creatinine, Urine 73.45 mg/dL (30.0-125.0)
[2023-12-16] MEDS: DICYCLOMINE HCL 10 MG CAP PO SCH (12:48)
[2023-12-16] MEDS: DOCUSATE SOD 100 MG CAP PO PRN (14:14)
[2023-12-16] MEDS: metroNIDAZOLE 500MG/100ML 100 ML IV SCH (14:15)
[2023-12-16] MEDS: ONDANSETRON HCL 4 MG/2 ML VIAL IV PRN (14:22)
[2023-12-16 14:31] VITALS: BP 135/75; PULSE 104; RESP 20; TEMP 98.8; O2SAT 91
[2023-12-16] MEDS ORDERED: METO25TA5 PO (14:42)
[2023-12-16 17:00] VITALS: BP 138/75; PULSE 101; RESP 22; TEMP 98.3; O2SAT 96
[2023-12-16 20:00] VITALS: BP 131/71; PULSE 95; PULSE 97; RESP 20; TEMP 98.8; O2SAT 99
[2023-12-16 21:00] VITALS: BP 131/71; PULSE 95; RESP 20; TEMP 98.8; O2SAT 99
[2023-12-17] VITALS (10 sets, daily range): BP systolic 126–179; BP diastolic 75–95; PULSE 88–97; RESP 18–21; TEMP 97.2–99; O2SAT 92–100
[2023-12-17 06:59] LABS: Basophils # (auto) 0 10 ^3/uL (0-0.2); Basophils % (auto) 0.1 % (0.0-2.0); Eosinophils # (auto) 0.1 10 ^3/uL (0-0.8); Eosinophils % (auto) 0.6 % (0.0-7.0); Hematocrit 35.2 % (36.0-46.0); Hemoglobin 11.5 g/dL (12.2-16.2); Lymphocytes # (auto) 0.7 10 ^3/uL (0.4-5.4); Lymphocytes % (auto) 5.4 % (10.0-50.0); Mean Corpuscular Hemoglobin 29.2 pg (28.0-32.0); Mean Corpuscular Hgb Conc. 32.8 g/dL (32.0-36.0); Mean Corpuscular Volume 88.9 fL (80.0-100.0); Monocytes # (auto) 0.9 10 ^3/uL (0-1.3); Monocytes % (auto) 7.7 % (0.0-12.0); Neutrophils # (auto) 10.5 10 ^3/uL (1.6-8.6); Neutrophils % (auto) 86.2 % (37.0-80.0); Red Blood Cells 3.96 10^6/uL (4.0-5.20); Red Cell Distribution Width 14.8 % (11.8-14.3); White Blood Cell 12.2 10^3/uL (4.4-10.8)
[2023-12-17 07:30] LABS: Alanine Aminotransferase 22 U/L (7-40); Alkaline Phosphatase 108 U/L (46-116); Anion Gap 10 (5-15); Aspartate Aminotransferase 19 U/L (13-40); BUN/Creatinine Ratio 40.4 (10.0-20.0); Calcium 8.1 mg/dL (8.5-10.1); Carbon Dioxide 21 mmol/L (20-30); Chloride 108 mmol/L (98-107); Glucose 101 mg/dL (74-106); Potassium 3.4 mmol/L (3.5-5.1); Sodium 139 mmol/L (136-145)
[2023-12-17 07:31] LABS: Bilirubin, Total 0.4 mg/dL (0.2-1.0); Total Protein 4.5 g/dL (5.7-8.2)
[2023-12-17 07:32] LABS: Blood Urea Nitrogen 38 mg/dL (9-23)
[2023-12-17] MEDS: POLYETHYLENE GLYCOL 17 GM PWDR PO SCH (09:01)
[2023-12-17] MEDS: cefTRIAXone 1GM/50ML D5W 50 ML IV SCH (09:02)
[2023-12-17] MEDS: SOD CHL 0.9%/ KCL 40MEQ 1,000 ML IV ONE (11:45)
[2023-12-17] MEDS ORDERED: POLYETHYLENE GLYCOL 17 GM PWDR PO PRN (11:45)
[2023-12-17] MEDS: POLYETHYLENE GLYCOL 17 GM PWDR PO ONE (13:43)
[2023-12-17] MEDS ORDERED: MONT-8 PO (16:42)
[2023-12-17] MEDS: SOD CHL 0.9%/ KCL 20MEQ 1,000 ML IV ONE (16:47)
[2023-12-17] MEDS: LACTULOSE 20Gm/30ML SOLN PO SCH (16:52)
[2023-12-18] VITALS (12 sets, daily range): BP systolic 136–193; BP diastolic 60–99; PULSE 74–97; RESP 17–26; TEMP 97.2–98.3; O2SAT 96–100
[2023-12-18] MEDS: IPRATROPIUM BROM 0.5 MG/2.5ML INH SOL NEB PRN (09:48)
[2023-12-18] MEDS: ALBUTEROL SULF 2.5 MG/0.5ML(0.5%) NEB SOLN NEB PRN (09:49)
[2023-12-18] MEDS ORDERED: POLYETHYLENE GLYCOL 17 GM PWDR PO PRN (10:00)
[2023-12-18] MEDS: MORPHINE SULFATE INJ 2 MG/ml SYRG IV PRN (10:28)
[2023-12-18] MEDS: METOPROLOL TARTRATE 25 MG TAB PO ONE (11:00)
[2023-12-18] MEDS: dilTIAZem HCL 180MG ER CAP PO SCH (11:07)
[2023-12-18] MEDS: METOPROLOL TARTRATE 50 MG TAB PO ONE (11:07)
[2023-12-18 11:43] LABS: Basophils # (auto) 0 10 ^3/uL (0-0.2); Basophils % (auto) 0.2 % (0.0-2.0); Eosinophils # (auto) 0.1 10 ^3/uL (0-0.8); Eosinophils % (auto) 1.3 % (0.0-7.0); Hematocrit 36.6 % (36.0-46.0); Hemoglobin 11.9 g/dL (12.2-16.2); Lymphocytes % (auto) 11.1 % (10.0-50.0); Mean Corpuscular Hemoglobin 28.9 pg (28.0-32.0); Mean Corpuscular Hgb Conc. 32.5 g/dL (32.0-36.0); Mean Corpuscular Volume 88.9 fL (80.0-100.0); Monocytes # (auto) 1.2 10 ^3/uL (0-1.3); Monocytes % (auto) 12.6 % (0.0-12.0); Neutrophils # (auto) 6.8 10 ^3/uL (1.6-8.6); Neutrophils % (auto) 74.8 % (37.0-80.0); Nucleated Red Blood Cells % 0.1 %; Red Blood Cells 4.12 10^6/uL (4.0-5.20); White Blood Cell 9.1 10^3/uL (4.4-10.8)
[2023-12-18 11:48] LABS: Chloride 110 mmol/L (98-107); Potassium 3.1 mmol/L (3.5-5.1); Sodium 138 mmol/L (136-145)
[2023-12-18 11:49] LABS: Anion Gap 7 (5-15); Carbon Dioxide 21 mmol/L (20-30)
[2023-12-18 11:50] LABS: Calcium 8.8 mg/dL (8.7-10.4)
[2023-12-18 11:54] LABS: Glucose 106 mg/dL (74-106)
[2023-12-18 11:55] LABS: BUN/Creatinine Ratio 22.2 (10.0-20.0); Blood Urea Nitrogen 16 mg/dL (9-23)
[2023-12-18] MEDS: hydrALAZINE HCL 20 MG/ML VL IV PRN (13:08)
[2023-12-18] MEDS: METOCLOPRAMIDE HCL 5MG/ml INJ 2ml VIAL IV SCH (13:08)
[2023-12-18] MEDS: POTASSIUM EFFERVESENT TAB 25 MEQ PO ONE (13:59)
[2023-12-18] MEDS: METOPROLOL TARTRATE 25 MG TAB PO SCH (21:55)
[2023-12-18] MEDS: BUDESONIDE (INHALATION) 0.5 MG/2 ML NEB NEB SCH (22:00)
[2023-12-19] VITALS (14 sets, daily range): BP systolic 115–150; BP diastolic 43–97; PULSE 62–91; RESP 18–26; TEMP 97.5–98.3; O2SAT 96–100
[2023-12-19] MEDS: DULoxetine HCL 30 MG CAP PO SCH (08:56)
[2023-12-19 13:33] LABS: Chloride 108 mmol/L (98-107); Sodium 137 mmol/L (136-145)
[2023-12-19 13:34] LABS: Anion Gap 5 (5-15); Calcium 8.5 mg/dL (8.5-10.1); Carbon Dioxide 24 mmol/L (20-30)
[2023-12-19 13:39] LABS: BUN/Creatinine Ratio 15.3 (10.0-20.0); Blood Urea Nitrogen 11 mg/dL (9-23); Glucose 169 mg/dL (74-106)
[2023-12-20] VITALS (7 sets, daily range): BP systolic 117–150; BP diastolic 63–83; PULSE 68–84; RESP 16–20; TEMP 98.1–98.3; O2SAT 92–100
[2023-12-20 06:24] LABS: Chloride 105 mmol/L (98-107); Potassium 3.2 mmol/L (3.5-5.1); Sodium 135 mmol/L (136-145)
[2023-12-20 06:25] LABS: Anion Gap 6 (5-15); Carbon Dioxide 24 mmol/L (20-30)
[2023-12-20 06:26] LABS: Calcium 8.6 mg/dL (8.7-10.4)
[2023-12-20 06:30] LABS: BUN/Creatinine Ratio 10.8 (10.0-20.0); Blood Urea Nitrogen 7 mg/dL (9-23); Glucose 136 mg/dL (74-106)
[2023-12-20] MEDS ORDERED: LACT10PA2 PO (10:43)
[2023-12-20] MEDS ORDERED: METR-344 PO (10:43)
== END 2023-12-20 16:30 | disposition home or self-care (01) | DRG 871 ==
LOC: ER 03:43 → EDBD 03:43 → TELE 10:28 → TELE-EAST 13:48 → EAST 12-18 18:52
PROVIDERS: ADMIT Nurse Practitioner Acute Care; ATTEND Nurse Practitioner Acute Care
DX: A41.9 Sepsis, unspecified organism (principal); J96.21 Acute and chronic respiratory failure with hypoxia; E87.1 Hypo-osmolality and hyponatremia; N17.9 Acute kidney failure, unspecified; K59.00 Constipation, unspecified; E86.0 Dehydration; J45.909 Unspecified asthma, uncomplicated; E03.9 Hypothyroidism, unspecified; E66.9 Obesity, unspecified; I10 Essential (primary) hypertension; K52.9 Noninfective gastroenteritis and colitis, unspecified; K57.30 Diverticulosis of large intestine without perforation or abscess without bleeding; Z68.31 Body mass index [BMI] 31.0-31.9, adult; Z88.0 Allergy status to penicillin; Z88.2 Allergy status to sulfonamides; Z81.8 Family history of other mental and behavioral disorders; Z82.49 Family history of ischemic heart disease and other diseases of the circulatory system
CPT/HCPCS: 36415; 74176; 80048; 80053; 81001; 82570; 83036; 83690; 84300; 84484; 85007; 85025; 85027; 93005; 94640; 96365; 96375; 99291; C9113; G0378; J2405; J3490